=== PATIENT | female | born 1955 | race Caucasian/White ===

== ENCOUNTER → 2016-10-29 | Outpatient (CLI) | payer MEDICARE, MEDICAID ==
[~2016-10-29] MED LIST: ACCU-CHEK AVIV1 EAC2; ADVIL200 MG PO; ALBUTEROL2.5 MG/3 M INH; ALBUTEROL2.5 MG/31 INH; ALDACTONE25 MG PO; AMOXICILLIN500 MG PO; ANTIVERT25 MG PO; ASPIRIN (CHILDR81 MG PO; ASPIRIN LO-DOSE81 MG PO; ATARAX25 MG PO; ATIVAN 0.5MG0.5 MG PO; ATIVAN 1 MG1 MG PO; CALCIUM CARBON600 MG PO; CALCIUM600 MG PO; CARDIZEM CD (T120 MG PO; COLACE100 MG PO; COREG25 MG PO; COZAAR25 MG PO; CPAP INH; DEBROX15 ML OTIC; ELAVIL25 MG PO; FISH OIL 1,0001 EACH PO; FLEXERIL10 MG PO; GENTEAL MILD TO25 ML OPHTH; GLUCOSE4 GM PO; IMDUR60 MG PO; INSULIN SYRING1 EA10; K-TAB 10MEQ10 MEQ PO; KEFLEX500 MG PO; LANTUS (IN100 UNIT/M SUB-Q; LASIX80 MG PO; MAXALT5 MG PO; MIRALAX17 GM PO; MIRAPEX0.25 MG PO; NEURONTIN400 MG PO; NEURONTIN600 MG PO; NITROSTAT0.4 MG SL; NORCO 5-325 MG1 TAB PO; NORVASC5 MG PO; NOVOLOG100 UNIT/M SUB-Q; ONDANSETRON ODT4 MG PO; OXYGEN M-15 INH; OXYGEN M-15 NOSE; PERCOCET 5-3251 EACH PO; PLAVIX75 MG PO; PRAVACHOL40 MG PO; PRENATAL 1+1)(P1 TAB PO; PROAIR HFA8.5 GM INH; PROAIR RESPICL90 MCG INH; RESTASIS1 EACH OPHTH; TRULICITY0.75 MG/0. SUB-Q; TRULICITY1.5 MG/0.5 SUB-Q; TYLENOL EXTRA500 MG PO; VITAMIN B-6100 MG PO; VITAMIN D1000 UNI1 PO; VITAMIN D35000 UNI1 PO; [UNRECOGNIZED DRUG - OTHER] PO
--- NOTE | ~2016-10-29 | PUL ---
PATIENT'S NAME: MEGAN [facility] AGE: 61 Y [address] ROOM: [place] [id number] LOCATION: [facility] ADMIT DATE: 10/29/2016 Pulmonary DISCHARGE DATE: FAMILY PHYSICIAN: Samson Davenport MD ATTENDING PHYSICIAN: Obey Figueroa NAME OF PROCEDURE: Sleep study PROCEDURE DATE: 10/29/16 TECH: RIP Winter TEST #: [facility] [place] [id number] TECHNICAL PARAMETERS: The patient was studied using International 10/20 measuring system. While the patient was studied, there was continuous monitoring of EEG (8 leads), EOG (2 leads), EKG (3 leads), submental EMG (3 leads), tibial (4 leads), respiratory inductive plethysmography (RIP) for thoracic and abdominal effort, oral and nasal airflow with a thermocouple and pressure transducer, and oximetry. The diesel technician also performed visual and auditory observations noting things like body position, patient's status, breath sounds, artifact, snoring level and patient comments. Continuous sound was monitored using a 2-way speaker system and video monitoring was performed using an infrared camera. Review of the entire study was performed epoch by epoch utilizing a single epoch and multiple epoch capability sleep system. MEDICAL HISTORY: The patient is a 61-year-old overweight woman with daytime sleepiness and snoring. SLEEP STAGE SUMMARY: The patient was studied for 468 minutes of which she slept 358 minutes. She fell asleep in 8 minutes and slept for 77% of the night. Sleep architecture revealed a decline in slow wave and REM sleep. RESPIRATORY SUMMARY: Oxygen saturations ranged from 83-92%. There were 17 apneas and 10 hypopneas for an apnea/hypopnea index normal at 4.5 events per hour. EKG SUMMARY: Average heart rate during sleep 86 beats per minute. No dysrhythmias were noted. LIMB MOVEMENT SUMMARY: No clinically relevant periodic limb movements were noted. SUMMARY: Mild non apneic hypoxemia. Oxygen saturations were below 88% for 7 minutes. No significant obstructive sleep apnea was observed. PATIENT'S NAME: MEGAN [facility] AGE: 61 Y [address] ROOM: [place] [id number] LOCATION: [facility] ADMIT DATE: 10/29/2016 Pulmonary DISCHARGE DATE: FAMILY PHYSICIAN: Samson Davenport MD ATTENDING PHYSICIAN: Obey Figueroa PLAN: Patient will receive results from the ordering provider. MD AMAN CHAO/ /[id number] dtt: 11/19/16 0824 , Marquez Talbert. dtd: 10/31/16 1047
== END | disposition disaster alternative care site (69) ==
LOC: GSLP 20:37
DX: I48.0 Paroxysmal atrial fibrillation (principal); I25.10 Atherosclerotic heart disease of native coronary artery without angina pectoris; D61.3 Idiopathic aplastic anemia; G47.31 Primary central sleep apnea; D63.1 Anemia in chronic kidney disease; R09.02 Hypoxemia

== ENCOUNTER → 2016-11-28 | Outpatient (CLI) | payer MEDICARE, MEDICAID | END | disposition disaster alternative care site (69) | LOC: GAMB 23:06 | DX: M79.602 Pain in left arm (principal); E11.9 Type 2 diabetes mellitus without complications; R07.81 Pleurodynia; Z79.4 Long term (current) use of insulin; Z79.899 Other long term (current) drug therapy; W08.XXXA Fall from other furniture, initial encounter | CPT/HCPCS: A0425; A0429 ==